=== PATIENT | female | born 1985 | race African-American/Black ===

== ENCOUNTER 2021-03-25 09:19 | Inpatient (IN) | payer OTHER ==
[2021-03-25 10:24] LABS: #Basophils 0.1 thou/uL (0.0-0.2); #Eosinphils 0.1 thou/uL (0.0-0.7); #Lymphocytes 3.5 thou/uL (1.20-3.40); #Monocytes 0.3 thou/uL (0.11-0.59); #Neutrophils 6.9 thou/uL (1.40-6.50); %Basophils 0.9 % (0.0-1.0); %Eosinophils 0.9 % (0.0-10.0); %Lymphocytes 31.7 % (21.0-51.0); %Neutrophils 63.6 % (42.0-75.0); Hemoglobin 13.4 g/dL (12.0-16.0); Mean Corpuscular HGB CONC 34.4 g/dL (32.0-36.0); Mean Corpuscular Hemoglobin 30.5 pg (27.0-31.0); Mean Corpuscular Volume 88.8 fL (78.0-98.0); Mean Platelet Volume 8.9 fL (7.4-10.4); Platelet Count 302 thou/uL (130-400); RBC Distribution Width 12.4 % (11.5-14.5); White Blood Cell (WBC) Count 10.9 thou/uL (4.8-10.8)
[2021-03-25 10:40] LABS: ALT (SGPT) 18 U/L (8-55); AST (SGOT) 20 U/L (5-34); Albumin 4.1 g/dL (3.5-5.0); Alkaline Phosphatase 71 U/L (40-110); Anion Gap 15 mmol/L (10-20); BUN (Urea Nitrogen) 11 mg/dL (7.0-18.7); Bilirubin, Total 0.2 mg/dL (0.2-1.2); Calc. Creatinine Clearance 0 mL/min (70-130); Calcium 9.2 mg/dL (7.8-10.44); Carbon Dioxide 22 mmol/L (22-29); Chloride 106 mmol/L (98-107); Globulin 2.7 g/dL (2.4-3.5); Glucose 142 mg/dL (70-105); Potassium 3.5 mmol/L (3.5-5.1); Protein, Total 6.8 g/dL (6.0-8.3); Sodium 139 mmol/L (136-145)
[2021-03-25] MEDS ORDERED: Nitroglycerin 0.4 MG TAB (25 Tab Bottle) SL PRN (13:31)
[2021-03-25] MEDS ORDERED: Lorazepam 2 MG/ML VIAL SLOW IVP PRN (13:32)
[2021-03-25] MEDS ORDERED: Acetaminophen 650 MG Suppository PR PRN (13:33)
[2021-03-25] MEDS ORDERED: Senokot S 8.6-50 MG TAB PO PRN (13:33)
[2021-03-25] MEDS ORDERED: Acetaminophen 325 MG TAB PO PRN (13:33)
[2021-03-25] MEDS ORDERED: Ondansetron ODT 4 MG TAB PO PRN (13:33)
[2021-03-25] MEDS ORDERED: Ondansetron PF 4 MG/2 ML Vial IVP PRN (13:33)
[2021-03-25 13:39] LABS: Hemoglobin A1c 5.2 % (4.0-6.0)
[2021-03-25] MEDS ORDERED: Aspirin 325 mg Enteric Coated Tablet PO SCH (14:15)
[2021-03-25 14:22] LABS: Magnesium 1.9 mg/dL (1.6-2.6)
[2021-03-25 14:55] LABS: Troponin I Less than 0.010 ng/mL (< 0.028)
[2021-03-25] MEDS ORDERED: Albuterol Sulfate 2.5 mg/3 ml Neb NEB PRN (15:47)
[2021-03-25] MEDS ORDERED: Iopamidol-370 76% 500 ML 1 ML ONE (16:07)
[2021-03-25] MEDS ORDERED: Magnevist 469MG/ML 20 ML VIAL ONE (16:17)
[2021-03-25 17:16] LABS: Troponin I Less than 0.010 ng/mL (< 0.028)
[2021-03-25] MEDS: Sodium Chloride 0.9% 1,000 ML IV SCH (17:37)
[2021-03-25 18:00] LABS: INR-International Normal Ratio 0.9; PTT 24.3 sec (22.9-36.1); Prothrombin Time 12.5 sec (12.0-14.7)
[2021-03-25 18:02] LABS: D-Dimer Test 1.1 *mcg/mL (0.27-0.43)
[2021-03-25 18:10] VITALS: BMI 44.6
[2021-03-25] MEDS ORDERED: FLU VACC QS2021-22(6MOS UP)/PF 60 MCG/0.5 ML SYRINGE IM ONE (20:30)
[2021-03-25 20:43] LABS: SARS-CoV-2 PCR by NAA Not Detected (NotDetected)
[2021-03-26 01:07] LABS: Amphetamine Not Detected (NotDetected); Barbiturates Screen Not Detected (NotDetected); Benzodiazepine Screen Not Detected (NotDetected); Cocaine Metabolite Screen Not Detected (NotDetected); Methadone Not Detected (NotDetected); Methamphetamine Not Detected (NotDetected); Opiate Screen Not Detected (NotDetected); Oxycodone Screen Not Detected (NotDetected); Phencyclidine (PCP) Not Detected (NotDetected); THC/Cannabinoid Screen Not Detected (NotDetected); Tricyclic Screen Not Detected (NotDetected)
[2021-03-26 01:10] LABS: Bacteria/HPF None Seen HPF (None Seen); Bilirubin Negative (Negative); Blood, Urine Negative (Negative); Clarity Clear (Clear); Glucose, Urine (Dipstick) Normal (Negative); Ketone, Urine Negative (Negative); Leukocyte Negative Leu/uL (Negative); Nitrite Negative (Negative); Protein, Urine (Dipstick) Negative (Neg-Trace); Specific Gravity, Urine 1.028 (1.002-1.036); Squamous Epithelial 0-3 HPF (0-3); Urobilinogen Normal mg/dL (Less than 2); WBC/HPF 0-3 HPF (0-3); pH, Urine 5.5 (5.0-9.0)
[2021-03-26 01:20] LABS: Urine Culture Reflex No No
[2021-03-26] MEDS: Sodium Chloride 0.9% 1,000 ML IV SCH (03:35)
[2021-03-26 06:09] LABS: #Basophils 0.1 thou/uL (0.0-0.2); #Eosinphils 0.1 thou/uL (0.0-0.7); #Lymphocytes 4.4 thou/uL (1.20-3.40); #Monocytes 0.7 thou/uL (0.11-0.59); #Neutrophils 6.3 thou/uL (1.40-6.50); %Basophils 0.5 % (0.0-1.0); %Lymphocytes 38.1 % (21.0-51.0); %Monocytes 5.6 % (0.0-10.0); %Neutrophils 54.7 % (42.0-75.0); Hemoglobin 13.1 g/dL (12.0-16.0); Mean Corpuscular HGB CONC 33.1 g/dL (32.0-36.0); Mean Corpuscular Hemoglobin 29.4 pg (27.0-31.0); Mean Corpuscular Volume 89.1 fL (78.0-98.0); Mean Platelet Volume 9.1 fL (7.4-10.4); Platelet Count 295 thou/uL (130-400); RBC Distribution Width 12.6 % (11.5-14.5); Red Blood Cell (RBC) Count 4.46 mill/uL (4.20-5.40); White Blood Cell (WBC) Count 11.6 thou/uL (4.8-10.8)
[2021-03-26 06:29] LABS: Anion Gap 12 mmol/L (10-20); BUN (Urea Nitrogen) 10 mg/dL (7.0-18.7); Calc. Creatinine Clearance 208 mL/min (70-130); Calcium 9.1 mg/dL (7.8-10.44); Carbon Dioxide 25 mmol/L (22-29); Cardiac Risk 6.2 (Less than 4.5); Chloride 108 mmol/L (98-107); Cholesterol 229 mg/dl (< 200 Desired); Glucose 88 mg/dL (70-105); HDL Cholesterol 37 mg/dL (>60 Neg Risk); LDL Cholesterol, Calculated 159 mg/dL; Potassium 3.7 mmol/L (3.5-5.1); Sodium 141 mmol/L (136-145); Triglycerides 167 mg/dL (Less than 150)
[2021-03-26] MEDS ORDERED: Aspirin 81 mg Enteric Coated Tablet PO SCH (09:00)
[2021-03-26] MEDS ORDERED: Prochlorperazine 10 MG/2 ML VIAL IVP SCH (16:15)
[2021-03-26] MEDS ORDERED: diphenhydrAMINE 50 MG/ML VIAL IVP SCH (16:15)
[2021-03-26 16:18] VITALS: BP 120/64; TEMP 98
== END 2021-03-26 19:36 | disposition home or self-care (01) | DRG 882 ==
LOC: ERS 09:19 → 3SE 12:02
PROVIDERS: ADMIT Internal Medicine; ATTEND Internal Medicine
DX: F43.9 Reaction to severe stress, unspecified (principal); R51.9 Headache, unspecified; R56.9 Unspecified convulsions; R55 Syncope and collapse; Z20.822 Contact with and (suspected) exposure to COVID-19; I10 Essential (primary) hypertension; J45.909 Unspecified asthma, uncomplicated; R73.9 Hyperglycemia, unspecified; G93.89 Other specified disorders of brain; D72.829 Elevated white blood cell count, unspecified; F32.A Depression, unspecified; Z90.711 Acquired absence of uterus with remaining cervical stump; Z91.010 Allergy to peanuts
CPT/HCPCS: 36415; 70496; 70553; 71045; 71275; 80048; 80053; 80061; 80306; 81001; 83036; 83735; 84443; 84484; 84702; 85025; 85379; 85610; 85730; 87040; 93005; 93306; 93880; 95712; 95819; 95957; J0780; J1200; J7050; U0003; U0005